=== PATIENT | male | born 1975 | race Caucasian/White ===

== ENCOUNTER 2016-11-02 23:56 | Emergency (ER) | payer OTHER ==
[2016-11-03 02:20] LABS: HEMOGLOBIN 13.8 gm/dl (14.0-17.5); RED BLOOD COUNT 4.8 M/UL (4.20-5.50)
[2016-11-03 02:30] LABS: BUN/CREATININE RATIO 13 (0-10)
[2016-11-03 02:53] LABS: WHITE BLOOD COUNT 13.5 K/UL (4.5-11.0)
== END 2016-11-03 07:58 | disposition other institution (70) ==
LOC: ER1 23:56
PROVIDERS: Physician Assistant
DX: G89.18 Other acute postprocedural pain (principal); M54.5 Low back pain; Z88.1 Allergy status to other antibiotic agents
CPT/HCPCS: 36415; 72131; 80053; 85025; 87040; 96361; 96374; 96375; 96376; 99284; J2270; J2405